=== PATIENT | female | born 1950 | race Caucasian/White ===

== ENCOUNTER → 2018-06-13 16:01 | Outpatient (CLI) | payer MEDICARE, OTHER, SELFPAY ==
--- NOTE | 2018-06-13 | DI.RAD.S_ITS ---
PROCEDURE: XR HAND RT MIN 3V INDICATIONS: RIGHT HAND PAIN TECHNIQUE: 3 views of the hand(s) acquired. COMPARISON: None. FINDINGS: Bones: No fractures or dislocations. Carpal bones are normally aligned. No suspicious bony lesions. Multilevel joint narrowing present, most notably involving the first CMC as well as multiple interphalangeal joints with prominent periarticular osteophyte formation. No bony erosions. Soft tissues: No suspicious soft tissue calcifications. IMPRESSION: Multilevel joint degeneration. Dictated by: Montrell ANDREWS Interpreted: Duran Hussein MD on 06/13/2018 at 16:18 Approved by: Duran Hussein M.D. on 06/13/2018 at 16:33
== END ==
PROVIDERS: Family Provider Family Medicine; PCP Family Medicine; Visit Provider Family Medicine
DX: M18.11 Unilateral primary osteoarthritis of first carpometacarpal joint, right hand (principal); M19.041 Primary osteoarthritis, right hand; M79.641 Pain in right hand
CPT/HCPCS: 73130

== ENCOUNTER → 2018-11-18 15:36 | Outpatient (CLI) | payer MEDICARE, OTHER, SELFPAY ==
--- NOTE | 2018-11-18 12:45 | DI.MG.S_ITS ---
Patient Name: ISAK WYLIE date: 1950 Sex: F Attending Physician: Frank Indications: Date: 11/18/2018 15:59 At the request of: KANE ALICEA Procedure: MM screening mammo BI BILATERAL DIGITAL SCREENING MAMMOGRAM 3D/2D WITH CAD: 11/18/2018 CLINICAL: Routine screening. Family history of breast cancer. Comparison is made to exams dated: 10/21/2017 mammogram, 08/24/2016 mammogram, and 07/19/2015 mammogram - [facility]. The tissue of both breasts is heterogeneously dense. This may lower the sensitivity of mammography. Current study was also evaluated with a Computer Aided Detection (CAD) system. No significant masses, calcifications, or other findings are seen in either breast. There has been no significant interval change. IMPRESSION: NEGATIVE There is no mammographic evidence of malignancy. A 1 year screening mammogram is recommended. This exam was interpreted at Station ID: [id number]. NOTE: For mammograms, a report in lay terms will be sent to the patient. Approximately 15% of breast malignancies will not be visualized mammographically. In the management of a palpable breast mass, a negative mammogram must not discourage biopsy of a clinically suspicious lesion. Electronically Signed By: Chacho palmer/julius:11/18/2018 21:55:36 letter sent: Normal Exam ACR BI-RADS Category 1: Negative 3341F
== END ==
PROVIDERS: PCP Family Medicine; Visit Provider Family Medicine
DX: Z12.31 Encounter for screening mammogram for malignant neoplasm of breast (principal); Z80.3 Family history of malignant neoplasm of breast
CPT/HCPCS: 77063; 77067

== ENCOUNTER 2019-10-16 13:11 | Emergency (ER) | payer MEDICARE, OTHER, SELFPAY ==
[2019-10-16 13:17] VITALS: BP 186/106; PULSE 66; RESP 18; TEMP 36.8; O2SAT 100; BMI 34.9
[2019-10-16 13:30] VITALS: BP 174/90; PULSE 60; RESP 18; O2SAT 98
[2019-10-16 13:40] LABS: Add Manual Diff / Slide Review NO; Basophils Absolute Auto 0 /uL (0-100); Basophils Percent Auto 0.5 % (0-2); Eosinophils Absolute Auto 200 /uL (0-450); Eosinophils Percent Auto 3.6 % (2-4); Hematocrit 40.4 % (36-46); Hemoglobin 13.9 g/dL (12.0-16.0); Lymphocytes Absolute Auto 1100 /uL (1100-4500); Lymphocytes Percent Auto 21.3 % (25-40); Mean Corpuscular HGB Conc 34.3 % (30-36); Mean Corpuscular Volume 93.4 fL (80-100); Monocytes Absolute Auto 300 /uL (0-900); Monocytes Percent Auto 5.4 % (3-14); Neutrophils Absolute Auto 3700 /uL (1500-7000); Neutrophils Percent Auto 69.2 % (50-75); Platelet Count 189 X10^3/uL (150-400); Red Blood Cell Count 4.33 X10^6/uL (4.0-5.2); White Blood Cell Count 5.3 X10^3/uL (4.5-11.0)
[2019-10-16 13:48] LABS: INR 0.9 (0.9-1.3); Prothrombin Time 10.9 SECONDS (10.1-12.7)
[2019-10-16 13:51] LABS: PTT Partial Thromboplastin Tim 40 SECONDS (26.4-36.2)
[2019-10-16 13:53] LABS: Alanine Aminotransferase 26 IU/L (<35); Albumin 4.8 g/dL (3.5-5.0); Albumin Globulin Ratio 1.7 (1.0-2.8); Alkaline Phosphatase 110 U/L (38-126); Aspartate Aminotransferase 37 IU/L (14-36); BUN Creatinine Ratio 27.1 (6-22); Bilirubin Total 0.7 mg/dL (0.2-1.3); Blood Urea Nitrogen 19 mg/dL (7-17); Calcium 9.5 mg/dL (8.4-10.2); Carbon Dioxide 26 mmol/L (22-32); Chloride 105 mmol/L (98-107); Creatine Kinase 63 U/L (30-135); Estimated Glomerular Filt Rate > 60.0 mL/min (>60); Globulin 2.8 g/dL (1.7-4.1); Glucose 101 mg/dL (80-110); HEMOLYSIS < 15 (0-50); Lipase 273 U/L (23-300); Potassium 4.2 mmol/L (3.4-5.1); Sodium 140 mmol/L (137-145); Total Protein 7.6 g/dL (6.3-8.2)
[2019-10-16 13:54] LABS: Magnesium 2.2 mg/dL (1.6-2.3)
--- NOTE | 2019-10-16 13:57 | ED_ITS ---
HPI - Weakness General Chief complaint: Weakness Stated complaint: lightheaded and sweaty hands Time Seen by Provider: 10/16/19 13:20 Source: patient Mode of arrival: Ambulatory Limitations: no limitations History of Present Illness HPI Narrative: Patient comes emergency department complaining of an episode of feeling lightheaded and sweaty today. Patient states that she was cleaning her house when the episode started and around 11 30 this morning, and that the episode lasted for around 30-60 minutes. Patient states that she lied down to see if resting would make her feel better, and that when she got up she was able to get around without feeling lightheaded and was able to drive herself here. Patient denies chest pain or shortness of breath at the time. She has not been ill recently. No vomiting or diarrhea. No fevers. The patient states that she had a similar episode last week at [facility] and that she happened to have a quart of water in her car. She drink the entire qt after which she felt better. Patient states that she has felt a slight feeling of palpitations during both episodes, but does not know where her heart rate was. The patient states that she has had to wear an event monitor in the past for similar but milder symptoms, and that she was not found to have any significant events. The patient is on atenolol and lisinopril for hypertension, but states the doses have not been changed recently and that she has been on both of these medications for quite some time. She is not on any diuretics. No other complaints at this time. Related Data Home Medications Medication Instructions Recorded Confirmed atenolol 50 mg PO DAILY 10/16/19 10/16/19 atorvastatin 80 mg PO DAILY 10/16/19 10/16/19 doxepin 50 mg PO TID 10/16/19 10/16/19 eszopiclone 3 mg PO DAILY 10/16/19 10/16/19 lisinopril 10 mg PO DAILY 10/16/19 10/16/19 Allergies Allergy/AdvReac Type Severity Reaction Status Date / Time No Known Drug Allergies Allergy Verified 10/16/19 13:20 Review of Systems Review of Systems ROS Unobtainable: All systems reviewed & are unremarkable except as noted in HPI and below Constitutional Constitutional: Denies chills, Denies fatigue, Denies fever(s), Denies frequent falls, Denies lethargy and Denies weakness Eyes Eyes: Denies change in vision, Denies eye discharge, Denies irritation and Denies loss of vision ENT Ears, Nose, Mouth, and Throat: Denies change in voice, Denies dizziness, Denies neck pain, Denies sore throat and Denies throat swelling Cardiovascular Cardiovascular: Denies chest pain, Denies irregular heart rhythm, Reports lightheadedness, Denies palpitations, Denies dyspnea, Denies dyspnea on exertion and Denies orthopnea Respiratory Respiratory: Denies cough, Denies dyspnea, Denies dyspnea on exertion and Denies wheezing Gastrointestinal Gastrointestinal: Denies abdominal pain, Denies change in bowel habits, Denies diarrhea, Denies nausea and Denies vomiting Genitourinary Genitourinary: Denies hematuria, Denies flank pain, Denies urinary incontinence and Denies urinary urgency Musculoskeletal Musculoskeletal: Denies back pain, Denies muscle weakness, Denies neck pain, Denies numbness and Denies tingling Integumentary/Breasts Skin/Breast: Denies pruritus, Denies erythema, Denies rash and Denies wounds Neurologic Neurologic: Denies behavioral changes, Denies confusion, Denies dizziness, Denies frequent falls, Denies loss of vision, Denies numbness, Denies tingling and Denies weakness Psychiatric Psychiatric: Denies anxiety, Denies behavioral changes, Denies confusion, Denies depression, Denies homicidal ideation and Denies suicidal ideation Endocrine Endocrine: Denies fatigue, Denies flushing and Denies palpitations Hematologic/Lymphatic Hematologic/Lymphatic: Denies easy bruising Allergic/Immunologic Allergic/Immunologic: Denies urticaria, Denies throat swelling and Denies wheezing Patient History Medical History HTN (hypertension) (Acute) Hyperlipidemia (Acute) Social History Smoking Status: Never smoker Smoking Status: Never smoker alcohol intake frequency: 0-2 drinks per day Substance Use Type: does not use Exam Initial Vital Signs Initial Vital Signs: Vital Signs Temperature 98.2 F 10/16/19 13:17 Pulse Rate 66 10/16/19 13:17 Respiratory Rate 18 10/16/19 13:17 Blood Pressure 186/106 H 10/16/19 13:17 Pulse Oximetry 100 10/16/19 13:17 Const General: cooperative and well developed Nutritional Appearance: well nourished Orientation: alert, awake, oriented x3 and not confused [facility] Head: normocephalic and atraumatic Ears: external ears normal Nose: external nose normal and No nasal discharge Face and sinus: face symmetric and No dry mucous membranes Mouth: oral mucosae normal and moist mucous membranes Teeth and gingiva: dentition normal Eyes General: appearance normal, both eyes and all related structures Eyelids: eyelids normal Conjunctivae: conjunctivae normal Sclera: sclerae normal Pupils: PERRL EOM: EOM intact bilaterally Neck Neck: normal visual inspection, trachea midline, No lymphadenopathy, No midline deformity and No JVD Lymphatic: No lymphedema Chest Chest: normal inspection of the chest Resp Effort & Inspection: normal respiratory effort, able to speak in complete sentences, no respiratory distress and no use of accessory muscles Auscultation: clear to auscultation bilaterally, no rales, no rhonchi and no wheezes Cardio Rate: regular rate Rhythm: regular rhythm Heart Sounds: no click, no gallops, no murmurs and no rubs Pulses: normal peripheral pulses GI Inspection: non-distended Palpation: soft, no hepatosplenomegaly, No guarding, No pulsatile mass and No te nder Back/Spine/Pelvis Back: No CVA tenderness Cervical Spine: cervical ROM normal and No pain with cervical ROM Thoracic/Lumbar Spine: thoracic and lumbar spine normal to inspection Skin General: no rashes or lesions noted, No jaundice and No petechiae Neuro General: alert, oriented x3, gait normal and no focal motor deficits Speech: speech normal Extrem General: full ROM, no clubbing, cyanosis or edema, no pedal edema and no calf tenderness Psych Appearance: well kempt Mental Status: mental status grossly normal Attitude: cooperative Thought Content: normal and suicidality Judgment: judgment good Course Course Course Narrative: Patient was worked up with labs and EKG, and kept on the surveillance monitor while in the emergency department. The patient was found to be feeling quite a bit better in the emergency department. She was given IV fluids and we discussed the need for follow-up. I spoke with Dr. Umanzor, the patient's primary care physician to advise her of the symptoms the patient had had, and she stated that we could call her office and make an appointment for the patient to be seen soon. This we did an appointment was made for October 21 in the morning. This was communicated to the patient, who states that she will keep the appointment. We have discussed that should the patient have any further symptoms like this, she should return to the emergency department, particularly if the symptoms persist. Otherwise, she should drink plenty of fluids and follow up as scheduled. Orders Ordered: ED Orders 10/16/19 13:21 EKG-12 Lead Stat 10/16/19 13:35 Complete Blood Count AUTO DIFF Stat Comprehensive Metabolic Panel Stat Lipase Stat Magnesium Stat Partial Thromboplastin Time Stat Prothrombin Time INR Stat Troponin & CK Cardiac Panel Stat Vital Signs Vital signs: Vital Signs - 8 hr 10/16/19 13:17 10/16/19 13:30 Temperature 98.2 F Pulse Rate 66 60 Respiratory Rate 18 18 Blood Pressure 186/106 H Blood Pressure [Left Arm] 174/90 H Pulse Oximetry 100 98 MDM - Weakness Medical Records Attestation: I reviewed the patient's medical records. Lab Data Attestation: I reviewed the patient's lab results. Result diagrams: 10/16/19 13:35 10/16/19 13:35 Labs: Lab Results 10/16/19 10/16/19 10/16/19 Range/Units 13:35 13:35 13:35 WBC 5.3 (4.5-11.0) X10^3/uL RBC 4.33 (4.0-5.2) X10^6/uL Hgb 13.9 (12.0-16.0) g/dL Hct 40.4 (36-46) % MCV 93.4 (80-100) fL MCH 32.0 (26-34) PG MCHC 34.3 (30-36) % RDW 13.0 (11.6-14.8) % Plt Count 189 (150-400) X10^3/uL Neut % (Auto) 69.2 (50-75) % Lymph % (Auto) 21.3 L (25-40) % Woodward % (Auto) 5.4 (3-14) % Eos % (Auto) 3.6 (2-4) % Baso % (Auto) 0.5 (0-2) % Neut # (Auto) 3700 (9270-3930) /uL Lymph # (Auto) 1100 (0618-4172) /uL Woodward # (Auto) 300 (0-900) /uL Eos # (Auto) 200 (0-450) /uL Baso # (Auto) 0 (0-100) /uL PT 10.9 (10.1-12.7) SECONDS INR 0.9 (0.9-1.3) APTT 40 H (26.4-36.2) SECONDS Sodium 140 (137-145) mmol/L Potassium 4.2 (3.4-5.1) mmol/L Chloride 105 (98-107) mmol/L Carbon Dioxide 26 (22-32) mmol/L BUN 19 H (7-17) mg/dL Creatinine 0.70 (0.52-1.04) mg/dL Estimated GFR > 60.0 (>60) mL/min BUN/Creatinine Ratio 27.1 H (6-22) Glucose 101 (80-110) mg/dL Calcium 9.5 (8.4-10.2) mg/dL Magnesium (1.6-2.3) mg/dL Total Bilirubin 0.7 (0.2-1.3) mg/dL AST 37 H (14-36) IU/L ALT 26 (<35) IU/L Alkaline Phosphatase 110 (38-126) U/L Total Creatine Kinase 63 (30-135) U/L CK-MB (CK-2) TNP CK-MB (CK-2) Rel Index TNP Troponin I < 0.012 (0.01-0.034) ng/mL Total Protein 7.6 (6.3-8.2) g/dL Albumin 4.8 (3.5-5.0) g/dL Globulin 2.8 (1.7-4.1) g/dL Albumin/Globulin Ratio 1.7 (1.0-2.8) Lipase 273 (23-300) U/L 10/16/19 Range/Units 13:35 WBC (4.5-11.0) X10^3/uL RBC (4.0-5.2) X10^6/uL Hgb (12.0-16.0) g/dL Hct (36-46) % MCV (80-100) fL MCH (26-34) PG MCHC (30-36) % RDW (11.6-14.8) % Plt Count (150-400) X10^3/uL Neut % (Auto) (50-75) % Lymph % (Auto) (25-40) % Woodward % (Auto) (3-14) % Eos % (Auto) (2-4) % Baso % (Auto) (0-2) % Neut # (Auto) (5815-8880) /uL Lymph # (Auto) (4155-1681) /uL Woodward # (Auto) (0-900) /uL Eos # (Auto) (0-450) /uL Baso # (Auto) (0-100) /uL PT (10.1-12.7) SECONDS INR (0.9-1.3) APTT (26.4-36.2) SECONDS Sodium (137-145) mmol/L Potassium (3.4-5.1) mmol/L Chloride (98-107) mmol/L Carbon Dioxide (22-32) mmol/L BUN (7-17) mg/dL Creatinine (0.52-1.04) mg/dL Estimated GFR (>60) mL/min BUN/Creatinine Ratio (6-22) Glucose (80-110) mg/dL Calcium (8.4-10.2) mg/dL Magnesium 2.2 (1.6-2.3) mg/dL Total Bilirubin (0.2-1.3) mg/dL AST (14-36) IU/L ALT (<35) IU/L Alkaline Phosphatase (38-126) U/L Total Creatine Kinase (30-135) U/L CK-MB (CK-2) CK-MB (CK-2) Rel Index Troponin I (0.01-0.034) ng/mL Total Protein (6.3-8.2) g/dL Albumin (3.5-5.0) g/dL Globulin (1.7-4.1) g/dL Albumin/Globulin Ratio (1.0-2.8) Lipase (23-300) U/L ECG Data Attestation: I personally reviewed and interpreted this ECG as follows: (See below) Interpretation: Twelve lead EKG performed October 16, 2019 at 1:25 p.m., as follows: Regular ventricular rhythm with a rate of 63 beats per minute WA interval to 26 millisecond QRS duration 105 millisecond QTC interval [address] T wave changes Interpretation: Normal sinus rhythm with first-degree AV block; marked left axis deviation; moderate voltage criteria for LVH consider normal variant; possible septal myocardial infarction of indeterminate age; no signs of acute ischemia; abnormal EKG as interpreted by ED MD. Discharge Plan Departure Patient Disposition: Home Clinical Impression: Postural dizziness with near syncope Discharge Date/Time: 10/16/19 15:00 Instructions: DI for Dizziness-Nonvertigo Activity Restrictions/Additional Instructions: Your labs and EKG look good. Your EKG does not show any concerning abnormalities at this time. You have been given an appointment with Dr. Umanzor for next Saturday, October 21, at 9:00 a.m. in the morning, for follow-up. If you have further or more severe episodes in the meantime, or certainly few of chest pain or shortness of breath, please return to the emergen cy department. Prescriptions: No Action doxepin 50 mg capsule 50 mg PO TID RF: 0 atorvastatin 80 mg tablet 80 mg PO DAILY RF: 0 lisinopril 10 mg tablet 10 mg PO DAILY RF: 0 atenolol 50 mg tablet 50 mg PO DAILY RF: 0 eszopiclone 3 mg tablet 3 mg PO DAILY RF: 0 Referrals: Elizabeth Umanzor MD [Primary Care Provider] -
[2019-10-16 14:02] VITALS: BP 171/86; PULSE 63; RESP 14; O2SAT 99
[2019-10-16 14:04] LABS: Troponin I < 0.012 ng/mL (0.01-0.034)
--- NOTE | 2019-10-16 14:41 | PC.NURSE ---
We were able to secure a doctor followup visit Saturday 9am @ [facility] on the
[2019-10-16 14:58] VITALS: BP 189/98; PULSE 66; RESP 18; O2SAT 98
== END 2019-10-16 15:00 | disposition home or self-care (01) ==
PROVIDERS: Emergency Provider Emergency Medicine; PCP Student in an Organized Health Care Education/Training Program
DX: R42 Dizziness and giddiness (principal); R55 Syncope and collapse; E78.5 Hyperlipidemia, unspecified; I10 Essential (primary) hypertension
CPT/HCPCS: 36415; 80053; 82550; 83690; 83735; 84484; 85025; 85610; 85730; 93005; 99283; 99284

== ENCOUNTER → 2019-12-05 12:42 | Outpatient (CLI) | payer MEDICARE, OTHER, SELFPAY ==
--- NOTE | 2019-12-05 | DI.MG.S_ITS ---
BILATERAL DIGITAL SCREENING MAMMOGRAM 3D/2D WITH CAD: 12/05/2019 CLINICAL: Routine screening. Family history of breast cancer. Comparison is made to exams dated: 11/18/2018 mammogram, 10/21/2017 mammogram, and 08/24/2016 mammogram - [facility]. The tissue of both breasts is heterogeneously dense. This may lower the sensitivity of mammography. Current study was also evaluated with a Computer Aided Detection (CAD) system. No significant masses, calcifications, or other findings are seen in either breast. There has been no significant interval change. IMPRESSION: NEGATIVE There is no mammographic evidence of malignancy. A 1 year screening mammogram is recommended. This exam was interpreted at Station ID: [id number]. NOTE: For mammograms, a report in lay terms will be sent to the patient. Approximately 15% of breast malignancies will not be visualized mammographically. In the management of a palpable breast mass, a negative mammogram must not discourage biopsy of a clinically suspicious lesion. Electronically Signed By: Michoacano mayes/julius:12/07/2019 09:49:37 letter sent: Normal Exam ACR BI-RADS Category 1: Negative 3341F
== END ==
PROVIDERS: PCP Student in an Organized Health Care Education/Training Program; Visit Provider Student in an Organized Health Care Education/Training Program
DX: Z12.31 Encounter for screening mammogram for malignant neoplasm of breast (principal); Z80.3 Family history of malignant neoplasm of breast
CPT/HCPCS: 77063; 77067

== ENCOUNTER → 2020-01-05 09:42 | Outpatient (CLI) | payer MEDICARE, OTHER, SELFPAY ==
[2020-01-05 10:37] LABS: Add Manual Diff / Slide Review NO; Basophils Absolute Auto 0 /uL (0-100); Basophils Percent Auto 0.5 % (0-2); Eosinophils Absolute Auto 300 /uL (0-450); Eosinophils Percent Auto 5.6 % (2-4); Hematocrit 39.7 % (36-46); Hemoglobin 13.6 g/dL (12.0-16.0); Lymphocytes Absolute Auto 1200 /uL (1100-4500); Lymphocytes Percent Auto 27.6 % (25-40); Mean Corpuscular HGB Conc 34.2 % (30-36); Mean Corpuscular Hemoglobin 31.6 PG (26-34); Mean Corpuscular Volume 92.6 fL (80-100); Monocytes Absolute Auto 200 /uL (0-900); Monocytes Percent Auto 5.5 % (3-14); Neutrophils Absolute Auto 2700 /uL (1500-7000); Neutrophils Percent Auto 60.8 % (50-75); Platelet Count 186 X10^3/uL (150-400); Red Blood Cell Count 4.29 X10^6/uL (4.0-5.2); Red Cell Distribution Width 12.3 % (11.6-14.8); White Blood Cell Count 4.5 X10^3/uL (4.5-11.0)
[2020-01-05 11:37] LABS: Thyroid Stimulating Hormone 2.21 uIU/mL (0.47-4.68)
[2020-01-05 11:50] LABS: Alanine Aminotransferase 40 IU/L (<35); Albumin 4.2 g/dL (3.5-5.0); Albumin Globulin Ratio 1.6 (1.0-2.8); Alkaline Phosphatase 81 U/L (38-126); Aspartate Aminotransferase 40 IU/L (14-36); Bilirubin Total 0.6 mg/dL (0.2-1.3); Blood Urea Nitrogen 14 mg/dL (7-17); Calcium 9.8 mg/dL (8.4-10.2); Carbon Dioxide 25 mmol/L (22-32); Chloride 106 mmol/L (98-107); Cholesterol 153 mg/dL (140-199); Estimated Glomerular Filt Rate > 60.0 mL/min (>60); Globulin 2.7 g/dL (1.7-4.1); Glucose 99 mg/dL (80-110); HDL Cholesterol 42 mg/dL (40-60); HEMOLYSIS < 15 (0-50); LDL Cholesterol Calculated 94 mg/dL (<100); Potassium 4.3 mmol/L (3.4-5.1); Sodium 140 mmol/L (137-145); Total Protein 6.9 g/dL (6.3-8.2); Triglycerides 85 mg/dL (35-150); VLDL Cholesterol Calculated 17 mg/dL (2-30)
[2020-01-05 11:54] LABS: Hep C Virus Ab w/Reflex Quant NEGATIVE s/c (NEGATIVE)
== END ==
PROVIDERS: PCP Student in an Organized Health Care Education/Training Program; Referring Provider Student in an Organized Health Care Education/Training Program; Visit Provider Student in an Organized Health Care Education/Training Program
DX: Z00.00 Encounter for general adult medical examination without abnormal findings (principal); E78.5 Hyperlipidemia, unspecified; I10 Essential (primary) hypertension; I47.1 Supraventricular tachycardia; Z11.59 Encounter for screening for other viral diseases
CPT/HCPCS: 36415; 80053; 80061; 84443; 85025; 86803

== ENCOUNTER → 2020-01-18 09:37 | Outpatient (CLI) | payer MEDICARE, OTHER, SELFPAY | PROVIDERS: PCP Student in an Organized Health Care Education/Training Program; Referring Provider Student in an Organized Health Care Education/Training Program; Visit Provider Student in an Organized Health Care Education/Training Program | DX: Z78.0 Asymptomatic menopausal state (principal); R29.890 Loss of height | CPT/HCPCS: 77080 ==

== ENCOUNTER → 2020-05-24 15:19 | Outpatient (CLI) | payer MEDICARE, OTHER, SELFPAY ==
[2020-05-25 14:45] LABS: COVID19 Sendout Not Detected (Not Detect)
== END ==
PROVIDERS: PCP Student in an Organized Health Care Education/Training Program; Visit Provider Physician Assistant
DX: Z01.812 Encounter for preprocedural laboratory examination (principal)
CPT/HCPCS: 87635

== ENCOUNTER 2020-05-27 13:15 | Day surgery (SDC) | payer MEDICARE, OTHER, SELFPAY ==
[2020-05-27] VITALS (9 sets, daily range): BP systolic 134–169; BP diastolic 68–78; PULSE 54–64; RESP 16–22; TEMP 36.6–36.7; O2SAT 96–98; BMI 63.0
--- NOTE | 2020-05-27 11:58 | PM.HP.1 ---
History of Present Illness History of Present Illness Date Patient Seen: 05/27/20 Chief complaint: [address]126 Narrative: 69 year old female comes in today for consideration of a screening colonoscopy. She has had one previous colonoscopy, reportedly normal. There have been no lower GI symptoms suggesting disease such as change in bowel habits, bleeding, abdominal pain or anemia. There's been no family history of colon cancer or colon polyps. Overall health issues have been stable, including no major cardiac events for at least 6 weeks. Past medical history: Hyperlipidemia Hypertension Postmenopausal Supraventricular tachycardia Insomnia Obesity, BMI less than 40 Past surgical history: Tonsillectomy, 1964 D&C, 1992 Family History: Mother, colon polyps. Social history: , retired. Patient History Medical History (Updated 10/31/19 @ 00:00 by ) HTN (hypertension) (Acute) Hyperlipidemia (Acute) Family & Social History Tobacco & Substance use: Smoking Status Never smoker alcohol intake frequency 0-2 drinks per day Substance Use Type does not use Meds Home Medications and Allergies Home Medications Medication Instructions Recorded Confirmed Type atenolol 50 mg PO DAILY 10/16/19 05/27/20 History atorvastatin 80 mg PO DAILY 10/16/19 05/27/20 History doxepin 50 mg PO TID 10/16/19 05/27/20 History eszopiclone 3 mg PO DAILY 10/16/19 05/27/20 History lisinopril 10 mg PO DAILY 10/16/19 05/27/20 History Allergies Allergy/AdvReac Type Severity Reaction Status Date / Time No Known Drug Allergies Allergy Verified 05/27/20 13:25 Review of Systems Review of Systems ROS: Yes All systems reviewed with the patient and are negative except as otherwise documented Exam Narrative Exam Narrative: GENERAL: Alert and oriented, appearing stated age and in no acute distress. HEENT: Head normocephalic/atraumatic. Pupils equal round reactive to light and accommodation. Extraocular muscles intact. LUNGS: Clear to ausculation bilaterally, no wheezes, rhonchi or rales. CV: Normal S1 and S2 with regular rate and rhythm, no audible murmurs, rubs or gallops. ABDOMEN: Soft, non-tender, non-distended, no organomegaly. Positive bowel sounds. EXTREMITIES: No clubbing, cyanosis, or edema. NEURO: Cranial nerves II through XII grossly intact, no focal deficits. PSYCH: Alert and oriented x 3. SKIN: No concerning lesions. Assessment & Plan Assessment & Plan narrative: 1. Family history of colon polyps 2. Screening for colon cancer Plan for colonoscopy. The nature and character of the procedure as well as anticipated results were discussed. The possibility of not completing the procedure was also discussed. Possible complications including aspiration pneumonia, bleeding, perforation and reaction to medications either for sedation or preparation and missed lesions were discussed. Questions were answered and proceeding to the colonoscopy was elected. Informed consent signed. COVID-19 COVID-19 status: Negative Result date/Date tested (Pos, Neg/Pending): 05/24/20
--- NOTE | 2020-05-27 12:04 | PM.OP.ENDO ---
Operative Date/Time/Diagnoses Date of procedure: 05/27/20 Pre-op diagnosis: 1. Family history of polyps 2. Screening for colon cancer Post-op diagnosis: other (1. Normal colonoscopy, 2. Sigmoid diverticulosis) Procedure & Clinicians Study performed: Colonoscopy Same procedure as scheduled: Yes Indications: 1. Family history of colon polyps 2. Screening for colon cancer Surgeon: Elizabeth Umanzor Procedure Notes SCOAP/Timeout: 14:38 Procedure in detail: ENDOSCOPIST: Elizabeth Umanzor MD Sedation RN: Marilee Bob RN Sedation start time: 2:39 p.m. Sedation end time: 3:10 p.m. PROCEDURE: Colonoscopy INDICATIONS: 1. Family history of colon cancer 2. Screening for cancer MEDICATION: Levsin 0.125 mg sublingual, incremental doses of Versed and fentanyl until appropriate level sedation achieved. ASA CLASS: 2 CECAL WITHDRAWAL TIME: 13 minutes COMPLICATIONS: None. EXTENT OF PROCEDURE: Cecum. QUALITY OF PREP: Good with portions of liquid stool. PROCEDURE: Prior to insertion of the colonoscope, a digital rectal examination was accomplished with circumferential palpation of the distal rectal mucosa without significant findings being noted. The high-definition pediatric colonoscope was passed into the rectum in the usual fashion and advanced over to the cecum without difficulty. The ileocecal valve, appendiceal stoma, and medial wall all could be inspected and no abnormalities were seen. ASCENDING COLON: As the colonoscope was withdrawn, care was taken to expose and inspect the haustral folds and no abnormalities were seen. HEPATIC FLEXURE: Normal no polyps, diverticula or other abnormalities. TRANSVERSE COLON: Normal no polyps, diverticula or other abnormalities. DESCENDING COLON: Normal no polyps, diverticula or other abnormalities. SIGMOID COLON: Minor diverticulosis, otherwise, normal, no polyps or other abnormalities. RECTUM: Normal. J maneuver was produced. There was no significant perianal disease. The J maneuver was broken. The remainder of the rectum was inspected and there was no external hemorrhoid disease. The scope was withdrawn. IMPRESSION: 1. Normal colonoscopy 2. Sigmoid diverticulosis, mild PLAN: 1. Repeat colonoscopy in 5 years secondary to family history. The possibility of a missed lesion including a malignancy has been discussed with the patient previously. Potential alarm symptoms have been discussed and should be reported immediately. Specimen(s): none sent Complications: none Post-procedure Recommendations: Colonscopy in 5 years Follow up: as needed Disposition: PACU
[2020-05-27] MEDS: LACTATED RINGERS 1,000 ML 200 ML IV (13:24)
== END 2020-05-27 16:03 | disposition home or self-care (01) ==
PROVIDERS: PCP Student in an Organized Health Care Education/Training Program; Referring Provider Student in an Organized Health Care Education/Training Program; Visit Provider Student in an Organized Health Care Education/Training Program
PROC: 0DJD8ZZ Inspection of Lower Intestinal Tract, Via Natural or Artificial Opening Endoscopic (ICD-10-PCS; CPT 45378; principal; 2020-05-27 14:30)
DX: Z12.11 Encounter for screening for malignant neoplasm of colon (principal); E78.5 Hyperlipidemia, unspecified; I10 Essential (primary) hypertension; K57.30 Diverticulosis of large intestine without perforation or abscess without bleeding
CPT/HCPCS: G0121

== ENCOUNTER → 2021-01-03 15:54 | Outpatient (CLI) | payer MEDICARE, OTHER, SELFPAY ==
--- NOTE | 2021-01-03 | DI.MG.S_ITS ---
BILATERAL DIGITAL SCREENING MAMMOGRAM 3D/2D WITH CAD: 01/03/2021 CLINICAL: Routine screening. Family history of breast cancer. Comparison is made to exams dated: 12/05/2019 mammogram, 11/18/2018 mammogram, and 10/21/2017 mammogram - [facility]. The tissue of both breasts is heterogeneously dense. This may lower the sensitivity of mammography. Current study was also evaluated with a Computer Aided Detection (CAD) system. No significant masses, calcifications, or other findings are seen in either breast. There has been no significant interval change. IMPRESSION: NEGATIVE There is no mammographic evidence of malignancy. A 1 year screening mammogram is recommended. This exam was interpreted at Station ID: [id number]. NOTE: For mammograms, a report in lay terms will be sent to the patient. Approximately 15% of breast malignancies will not be visualized mammographically. In the management of a palpable breast mass, a negative mammogram must not discourage biopsy of a clinically suspicious lesion. Electronically Signed By: Luann gutierrez/julius:01/03/2021 16:38:46 letter sent: Normal Exam ACR BI-RADS Category 1: Negative 3341F
== END ==
PROVIDERS: PCP Student in an Organized Health Care Education/Training Program; Referring Provider Student in an Organized Health Care Education/Training Program; Visit Provider Student in an Organized Health Care Education/Training Program
DX: Z12.31 Encounter for screening mammogram for malignant neoplasm of breast (principal); Z80.3 Family history of malignant neoplasm of breast
CPT/HCPCS: 77063; 77067